=== PATIENT | male | born 1985 | race Caucasian/White ===

== ENCOUNTER 2016-07-09 17:07 | Emergency (ER) | payer SELFPAY ==
[~2016-07-09] VITALS: Ht 167.6 cm; Wt 54.2 kg
[2016-07-09 17:48] LABS: HEMATOCRIT 43.8 % (38.0-50.0); MCH 33.6 PG (29.0-34.0); MCHC 34.7 G/DL (30.0-36.0); MCV 96.7 FL (86-99); MEAN PLAT.VOLUME 8.3 uM^3 (9.0-12.4); PLATELET COUNT 373 K/uL (156-360); RBC DIS.WIDTH-CV 13.6 % (11.8-14.6); RBC DIS.WIDTH-SD 48.5 % (39-53); RED BLOOD COUNT 4.53 M/uL (4.00-5.50); WHITE BLOOD COUNT 8.4 K/uL (4.1-10.2)
[2016-07-09 17:48] LABS: ADD MIUA? YES; BILIRUBIN NEGATIVE; BLOOD SMALL; COLOR YELLOW ((YELLOW)); GLUCOSE (STRIP) 50; KETONES NEGATIVE; LEUKOCYTES NEGATIVE; NITRITE NEGATIVE; PROTEIN (STRIP) 100; SPECIFIC GRAVITY 1.009 (1.000-1.030); UROBILINOGEN 0.2 MG/DL (0.2-1.0)
[2016-07-09 17:54] LABS: BACTERIA NONE SEEN /HPF; CELLULAR CASTS 0-5 /LPF; EPITHELIAL CELLS RARE /HPF; HYALINE CASTS 0-5 /LPF; MUCUS TRACE /LPF; RED BLOOD CELLS 15-20 /HPF (0-5); UNCLASSIFIED CASTS 0-5 /LPF; WHITE BLOOD CELLS 0-5 /HPF (0-5)
[2016-07-09 17:58] LABS: COCAINE NEGATIVE (150 ng/mL); METHAMPHETAMINE NEGATIVE (500 ng/mL); PHENCYCLIDINE NEGATIVE (25 ng/mL); THC CANNABINOIDS NEGATIVE (50 ng/mL)
[2016-07-09 17:59] LABS: ADD MEDTOX COMMENT Y; AMPHETAMINE NEGATIVE (500 ng/mL); BARBITURATES NEGATIVE (200 ng/mL); BENZODIAZEPINES NEGATIVE (150 ng/mL); INTERNAL CONTROLS VALID? YES; METHADONE NEGATIVE (200 ng/mL); OPIATES (MORPHINE) PRESUMPTIVE POSITIVE (100 ng/mL); OXYCODONE NEGATIVE (100 ng/mL); PROPOXYPHENE NEGATIVE (300 ng/mL); TRICYCLIC ANTIDEPRESSANTS NEGATIVE (300 ng/mL)
[2016-07-09 18:04] LABS: CHLORIDE 111 mEq/L (99-109); POTASSIUM 3.6 mEq/L (3.7-5.4); SODIUM 144 mEq/L (136-147)
[2016-07-09 18:06] LABS: GLUCOSE 105 mg/dL (70-99)
[2016-07-09 18:07] LABS: ANION GAP 12 MEQ/L (2-14)
[2016-07-09 18:08] LABS: TOTAL BILIRUBIN 0.2 mg/dL (0.0-1.0)
[2016-07-09 18:09] LABS: SERUM ETHYL ALCOHOL 134 mg/dL
[2016-07-09 18:10] LABS: ALKALINE PHOSPHATASE 76 IU/L (3-129); GFR ESTIMATE (CALCULATED) > 59 mL/min/
[2016-07-09 18:11] LABS: UREA NITROGEN (BUN) 4 mg/dL (9-23)
[2016-07-09 18:13] LABS: CREATINE KINASE 57 IU/L (1-294); TROP-I INTERPRETATION NEGATIVE; TROPONIN-I 0.01 ng/mL (0.0-0.30)
[2016-07-09] MEDS ORDERED: NARCAN4 MG NS (19:48)
[2016-07-09 20:22] VITALS: BP 122/79
== END 2016-07-09 20:28 | disposition home or self-care (01) ==
LOC: EDBD 17:07 → EME 17:07
PROVIDERS: Emergency Medicine
DX: T40.1X1A Poisoning by heroin, accidental (unintentional), initial encounter (principal); R40.20 Unspecified coma; F11.10 Opioid abuse, uncomplicated; R06.81 Apnea, not elsewhere classified; I47.1 Supraventricular tachycardia; R56.9 Unspecified convulsions; F17.200 Nicotine dependence, unspecified, uncomplicated
CPT/HCPCS: 80053; 81003; 82550 91; 84484; 84999; 85027; 93005; 99281; 99285; G0480; J0153; J2310; J7030